=== PATIENT | male | born 2000 | race Caucasian/White ===

== ENCOUNTER 2021-05-09 17:52 | Emergency (ER) | payer BC ==
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
[2021-05-09] MEDS ORDERED: Lidocaine 2% Viscous Solution 15 ML Cup PO ONE (18:13)
== END 2021-05-09 18:55 | disposition home or self-care (01) ==
LOC: KA.ED 17:52
DX: S02.5XXA Fracture of tooth (traumatic), initial encounter for closed fracture (principal); S01.511A Laceration without foreign body of lip, initial encounter; W22.8XXA Striking against or struck by other objects, initial encounter; Y93.53 Activity, golf; Y92.096 Garden or yard of other non-institutional residence as the place of occurrence of the external cause
CPT/HCPCS: 12001; 12011; 99282-25; 99283; A9270-GY